=== PATIENT | female | born 1990 | race Caucasian/White ===

== ENCOUNTER 2016-10-05 17:29 | Emergency (ER) ==
[2016-10-05 17:43] VITALS: BP 105/74
[2016-10-05 19:03] LABS: MANUAL DIFF NEEDED? NO
--- NOTE | 2016-10-05 19:08 | PROVIDER DOCUMENTATION ---
HPI-General Adult - General Source: patient - History of Present Illness -Gen Adult Nature of Presenting Problems: 26 YOWF PT STATES 17 WEEKS . PRESENTS TO ED WITH C/O PT STATES 2 ND EPISODE IN THE PAST MONTH. PT STATES HEADACHES X 2 MONTHS. PT STATES SHE WOKE UP THIS MORNING WITH NAUSEA. 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 PT STATES AFTER THAT SHE WENT TO [employer] STORE AND HER ARMS WENT NUMB. PT STATES SHE WAS WATCHING TV AND WAS HAVING TROUBLE WITH HER RT EYE FOCUSING. PT STATES NUMBNESS GOES DOWN BOTH LEGS, BUT RT LEG IS DOWN TO HER WU. Location of Pain/Injury: reports: head Pain Radiation: reports: no radiation Quality of Pain: reports: aching Onset/Duration: reports: other (2 MONTHS) Timing: reports: still present Context/Activities at Onset: reports: light activity Modifying Factors: improves with: nothing Associated Symptoms: reports: headaches Similar Symptoms Previously?: No Recently seen or treated by another doctor?: No <Griffin Mcgovern - Last Filed: 10/05/16 20:30> <Som Gordon - Last Filed: 10/05/16 20:31> - General Chief Complaint: Numbness Stated Complaint: NUMBNESS/TINGLING (16 WKS PREG) Time Seen by Provider: 10/05/16 18:22 Allergies/Adverse Reactions: Patient Allergies Allergy/AdvReac Type Severity Reaction Status Date / Time Penicillins Allergy Unknown Verified 09/04/16 18:45 Home Medications: Home Medication List Medication Instructions Recorded Confirmed Last Taken Type Doxylamine/Pyridoxine HCl 1 each PO QHS 09/04/16 09/04/16 09/04/16 History [Oscar Dr 10-10 mg Tablet] Pnv Comb.no58/Iron Bisgly/FA 1 each PO QAM 09/04/16 09/04/16 09/04/16 History [ Capsule] Review of Systems - Adult - REVIEW OF SYSTEMS - ADULT Constitutional: denies: chills, fever Cardiovascular: denies: chest pain, palpitations, syncope Respiratory: denies: cough, shortness of breath, wheezing Gastrointestinal: reports: nausea. denies: abdominal pain, diarrhea, vomiting Musculoskeletal: reports: other (NUMBNESS FROM FACE DOWN TO LEGS). denies: back pain, neck pain Neurological: reports: headache/migraines. 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 Obstetrical/Gynecological: reports: other (PCOS) Additional History: dysautonomia - PRIOR SURGERIES/PROCEDURES Surgical/Procedure History: reports: none - IMMUNIZATION STATUS Childhood Immunizations: See Nurse Assessment Flu Vaccine: See Nurse Assessment - SOCIAL HISTORY Smoking: denies Substance Use: denies Alcohol Use Frequency: never Living Situation: family <Griffin Mcgovern - Last Filed: 10/05/16 20:30> Physical Exam-General - CONSTITUTIONAL General Appearance: alert, moderate distress - EYES Eyes: PERRL/EOMI, pink conjunctivae - HEAD, EARS, NOSE, MOUTH & THROAT HENMT: normocephalic/atraumatic, moist mucous membranes - NECK Neck: non-tender, full range of motion, supple - RESPIRATORY Respiratory: chest non-tender, lungs clear, normal breath sounds - CARDIOVASCULAR Cardiovascular: normal peripheral pulses, tachycardia - GASTROINTESTINAL (ABDOMEN) Abdominal Exam: normal bowel sounds, non tender, soft - LYMPHATIC Lymphatic: no adenopathy - MUSCULOSKELETAL Back Exam: normal inspection, no CVA tenderness, no vertebral tenderness Extremity: normal range of motion, non-tender - SKIN Integumentary: normal color, normal turgor, warm/dry - NEUROLOGIC Neurologic: grossly normal - PSYCHIATRIC Psych/Mental Status: oriented x 3 <Griffin Mcgovern - Last Filed: 10/05/16 20:30> Progress - PLAN OF CARE/RESULTS Progress/Plan/Lab Results: Laboratory Tests 10/05/16 10/05/16 10/05/16 19:00 19:00 19:00 WBC 10.15 RBC 4.28 Hgb 11.9 L Hct 35.2 L MCV 82.2 MCH 27.8 MCHC 33.8 RDW Std Deviation 12.9 Plt Count 258 MPV 9.6 Immature Gran % (Auto) 0.3 Neut % (Auto) 66.2 Lymph % (Auto) 26.1 [place] % (Auto) 6.0 Eos % (Auto) 1.2 Baso % (Auto) 0.2 Immature Gran # (Auto) 0.03 Neut # (Auto) 6.72 H Lymph # (Auto) 2.65 [place] # (Auto) 0.61 H Eos # (Auto) 0.12 Baso # (Auto) 0.02 PT 12.6 INR 0.91 APTT (Factor Assay) 28.2 Sodium 134 L Potassium 3.7 Chloride 103 Carbon Dioxide 21 L Anion Gap 10 BUN 4 L Creatinine 0.4 L Estimated GFR/1.73 m2 > 60 BUN/Creatinine Ratio 10 Glucose 94 Calculated Osmolality 265 Calcium 8.6 L Total Bilirubin 0.20 AST 31 H ALT 31 Alkaline Phosphatase 63 Total Protein 6.5 Albumin 3.6 Globulin 3.0 Albumin/Globulin Ratio 1.0 Orders Category Date Time Status HEAD W/O CONTRAST [CT] Stat Exams 10/05/16 18:50 Taken CBC WITH DIFF [HEME] Stat Lab 10/05/16 19:00 Completed COMPREHENSIVE METABOLIC PANEL [CHEM] Stat Lab 10/05/16 19:00 Completed PT [PROTIME WITH INR PL] [COAG] Stat Lab 10/05/16 19:[address] [COAG] Stat Lab 10/05/16 19:00 Completed EKG [EKG] Stat Ther 10/05/16 18:51 Draft Vital Signs - 24 hr 10/05/16 17:39 Temperature 97.8 F Pulse Rate 93 H Respiratory 18 Rate Blood Pressure 105/74 O2 Sat by Pulse 100 Oximetry - EKG 1 Time of EKG reading by physician:: 19:06 EKG Read and Signed by:: Som Gordon EKG Interpretation (*Must complete 3 of following elements*): Normal Rate: 79 Rhythm: NSR W/ SINUS ARRHYTHMIA [place]: normal QRS: normal NM Interval: normal ST Wave: normal - CT/MRI 1 CT Study: Head CT Results: NAP - CONSULTS/PCP/HOSPITALIST Notification #1 *Consult/PCP/Hospitalist*: DR BARBA Time Discussed: 20:28 Reason/Comments: DR GORDON SPOKE WITH DR BARBA. DR BARBA STATES OK FOR PT TAKE ASPIRIN <Griffin Mcgovern - Last Filed: 10/05/16 20:30> Departure - Departure Time of Disposition Order: 20:29 Certified Medical Emergency: Emergent <Griffin Mcgovern - Last Filed: 10/05/16 20:30> - Departure Time of Disposition Order: 20:31 Certified Medical Emergency: Emergent <Kleeman,Som M. - Last Filed: 10/05/16 20:31> - Departure DIAGNOSIS: Neurological deficit, transient Disposition: HOME 01 Condition: Stable Additional Instructions: SEE OB THIS WEEK FOR REFERRAL TO NEUROLOGIST MAY TAKE ENTERIC COATED ASPIRIN DIALY UNTIL SEE OB OR NEUROLOGIST RETURN TO ER IF WORSE Referrals: Raj Oneil MD [Primary Care Provider] - Attestation - Scribe Verification/Attestation Scribe:: Griffin Mcgovern Acting as Scribe for:: Som Gordon Scribe documention review:: This chart was documented by a scribe and accurately reflects the service the provider performed and the decisions made by the provider. <Griffin Mcgovern - Last Filed: 10/05/16 20:30> Physician Attestation
[2016-10-05 19:09] LABS: BASO% 0.2 % (0.0-0.8); EOS# 0.12 X1000 (0.0-0.7); EOS% 1.2 % (0.0-10.0); HEMATOCRIT 35.2 % (37.0-47.0); HEMOGLOBIN 11.9 g/dL (12.0-16.0); IMM GRAN# 0.03 X1000 (0.0-0.04); IMM GRAN% 0.3 % (0.0-0.5); LYMPH# 2.65 X1000 (1.2-3.4); LYMPH% 26.1 % (20.5-51.1); MCH 27.8 PG (27-31); MCHC 33.8 g/dL (33-37); MCV 82.2 FL (81-99); MONO# 0.61 X1000 (0.11-0.59); MPV 9.6 FL (7.4-10.4); NEUT% 66.2 % (42.2-75.2); PLT 258 X1000 (130-400); RBC 4.28 XMIL (4.2-5.4)
[2016-10-05 19:21] LABS: INR 0.91 (0.86-1.15); PROTIME 12.6 Seconds (12.1-15.5)
[2016-10-05 19:22] LABS: PTT PL 28.2 Seconds (22.6-43.9)
[2016-10-05 19:24] LABS: AGAP 10; ALBUMIN 3.6 g/dL (3.5-5.0); ALKALINE PHOSPHATASE 63 U/L (32-104); BUN 4 mg/dL (8-22); CALCIUM 8.6 mg/dL (8.8-10.2); CHLORIDE 103 mmol/L (98-107); COSMO 265; GOT 31 U/L (10-30); GPT 31 U/L (10-36); POTASSIUM 3.7 mmol/L (3.5-5.1); SODIUM 134 mmol/L (136-145); TCO2 21 mmol/L (25-35); TOTAL PROTEIN 6.5 g/dL (6.3-8.3)
--- NOTE | 2016-10-05 19:25 | EKG Report ---
Test Performed on : 10/05/2016 7:05:25 PM Test Reason : pain Blood Pressure : / mmHG Vent. Rate : 079 BPM Atrial Rate : 079 BPM P-R Int : 118 ms QRS Dur : 074 ms QT Int : 374 ms P-R-T Axes : 000 050 016 degrees QTc Int : 428 ms Normal sinus rhythm. with sinus arrhythmia. Normal ECG When compared with ECG of 04-SEP-2016 18:12, No significant change was found Unconfirmed Result
[2016-10-05] MEDS ORDERED: ASPIRIN EC PO ONE (20:29)
--- NOTE | 2016-10-06 07:57 | Diag Imaging Result Document ---
PROCEDURE NAME: HEAD W/O CONTRAST - 10/05/2016 CT BRAIN WITHOUT CONTRAST: TECHNIQUE: Dose-reduction protocol. FINDINGS: No parenchymal hemorrhage. No epidural or subdural hematoma. No subarachnoid hemorrhage. No mass identified on this noncontrasted exam. No hydrocephalus. No sinus opacification. IMPRESSION: No hemorrhage. Negative brain CT without contrast. A preliminary report was given at 7:44 p.m. MTDD
== END 2016-10-05 21:30 | disposition home or self-care (01) ==
LOC: P.ED 17:29
DX: O26.892 Other specified pregnancy related conditions, second trimester (principal); R29.818 Other symptoms and signs involving the nervous system; R51 Headache; R11.0 Nausea; R20.0 Anesthesia of skin; R20.2 Paresthesia of skin; R00.0 Tachycardia, unspecified; Z3A.16 16 weeks gestation of pregnancy
CPT/HCPCS: 70450; 80053; 82948; 85025; 85610; 85730; 93005